=== PATIENT | female | born 1990 | race Caucasian/White ===

== ENCOUNTER → 2016-08-23 | Outpatient (CLI) | payer SELFPAY ==
[2016-08-23 10:56] LABS: BASOPHILS # (AUTO) 0.02 10*3/UL; BASOPHILS % (AUTO) 0.2 % (0-1); EOSINOPHILS % (AUTO) 0.7 % (0-8); HEMATOCRIT 36.3 % (37.0-47.0); HEMOGLOBIN 12.5 g/dL (12.0-16.0); IMM GRAN# (AUTO) 0.11 10*3/UL; LYMPHOCYTES # (AUTO) 1.93 10*3/uL; LYMPHOCYTES % (AUTO) 16.8 % (10-50); MEAN CORPUSCULAR HEMOGLOBIN 32.1 PG (27-31); MEAN CORPUSCULAR HGB CONC 34.4 g/dL (33-37); MEAN PLATELET VOLUME 10.6 FL (7.4-12.2); MONOCYTES # (AUTO) 0.72 10*3/UL (0.3-0.8); MONOCYTES % (AUTO) 6.3 % (5-15); NEUTROPHILS # (AUTO) 8.66 10*3/UL; RDW COEFFICIENT OF VARIATION 12.6 % (11.5-14.5); WHITE BLOOD COUNT 11.52 10^3/uL (4.8-10.8)
[2016-08-23 11:01] LABS: PLATELET MORPHOLOGY COMMENT NORMAL MORPHOLOGY (NORM)
[2016-08-23 11:02] LABS: PRENATAL QUESTION YES (Y)
[2016-08-23 11:54] LABS: HIV ANTIBODY NEGATIVE (N); HIV-1 P24 ANTIGEN NEGATIVE (N)
[2016-08-23 12:16] LABS: COCAINE SCREEN NEGATIVE (NEG); METHAMPHETAMINES SCREEN,URINE NEGATIVE (NEG); TRICYCLIC ANTIDEPRESSANT,URINE NEGATIVE (NEG); URINE SAMPLE TYPE VOIDED SPECIMEN; URINE SPECIFIC GRAVITY - MAN 1.015
[2016-08-23 12:17] LABS: CANNABINOID SCREEN,URINE NEGATIVE (NEG)
[2016-08-25 09:32] LABS: HEP B SURFACE AG Negative (Negative); SYPHILIS IGG WITH REFLEX Negative (Negative)
== END ==
LOC: LAB 10:27
PROVIDERS: ATTEND Student in an Organized Health Care Education/Training Program
DX: Z36 Encounter for antenatal screening of mother (principal); O09.33 Supervision of pregnancy with insufficient antenatal care, third trimester; O99.333 Smoking (tobacco) complicating pregnancy, third trimester; Z3A.33 33 weeks gestation of pregnancy
CPT/HCPCS: 36415; 80081; 80305; 86900; 86901; 87088

== ENCOUNTER → 2016-09-08 | Outpatient (CLI) | payer SELFPAY | LOC: MOB LAB 14:56 | PROVIDERS: ATTEND Student in an Organized Health Care Education/Training Program | DX: Z36 Encounter for antenatal screening of mother (principal); Z3A.35 35 weeks gestation of pregnancy | CPT/HCPCS: 87150 ==

== ENCOUNTER 2016-09-22 04:03 | Inpatient (IN) | payer SELFPAY ==
[~2016-09-22 04:03] MED LIST: NORMAL SALINE 10 ML SYRINGE FLUSH IVP PRN
[2016-09-22] MEDS ORDERED: Lidocaine 1% 10 MG/ML - 20 ML VIAL SUBCUT PRN (05:46)
[2016-09-22] MEDS ORDERED: Nalbuphine Inj 20 MG/ML Ampule IVP PRN ×2 (05:46→14:26)
[2016-09-22] MEDS ORDERED: Metoclopramide Inj 10 MG/2 ML VIAL IV PRN (05:46)
[2016-09-22] MEDS ORDERED: Carboprost Inj 250 MCG/ML AMP IM PRN ×2 (05:46→14:26)
[2016-09-22] MEDS ORDERED: MISOPROSTOL 200 MCG TABLET RECTAL PRN (05:46)
[2016-09-22] MEDS ORDERED: NALOXONE 0.4 MG/1 ML VIAL IVP PRN (05:46)
[2016-09-22] MEDS ORDERED: CefOXitin Inj 2 GM in Sodium Chloride 0.9% 100 ML IV PRN (05:46)
[2016-09-22] MEDS ORDERED: Naloxone Inj 0.01 MG in Normal Saline Flush 1 ML IVP PRN (05:46)
[2016-09-22] MEDS ORDERED: CITRIC ACID/SODIUM CITRATE 30 ML CUP PO PRN (05:46)
[2016-09-22] MEDS ORDERED: ONDANSETRON 4 MG/2 ML VIAL IVP PRN ×2 (05:46→14:26)
[2016-09-22] MEDS ORDERED: BUTORPHANOL TARTRATE 2 MG/1 ML VIAL IVP PRN (05:46)
[2016-09-22] MEDS ORDERED: METHYLERGONOVINE MALEATE 0.2 MG/1 ML VIAL IM PRN ×2 (05:46→14:26)
[2016-09-22] MEDS ORDERED: Phenylephrine Inj 50 MCG in Normal Saline Flush 0.5 ML IVP PRN (05:46)
[2016-09-22] MEDS ORDERED: TERBUTALINE SULFATE 1 MG/1 ML SDV SUBCUT PRN (05:46)
[2016-09-22] MEDS ORDERED: fentaNYL Inj 100 MCG/2 ML VIAL IV PRN (05:46)
[2016-09-22] MEDS ORDERED: OXYTOCIN 10 UNIT/1 ML IM PRN (05:46)
[2016-09-22] MEDS ORDERED: LIDOCAINE W/ SODIUM BICARB 0.5 ML SYR SUBD PRN (05:46)
[2016-09-22] MEDS ORDERED: NORMAL SALINE 10 ML SYRINGE FLUSH IVP PRN ×2 (05:46→14:26)
[2016-09-22] MEDS ORDERED: CALCIUM CARBONATE 500 MG (TUMS) CHEWABLE TABLET PO PRN ×2 (05:46→14:26)
[2016-09-22] MEDS ORDERED: diphenhydrAMINE 50 MG/1 ML VIAL IVP PRN ×2 (05:46→14:26)
[2016-09-22] MEDS ORDERED: ePHEDrine Inj 5 MG in Normal Saline Flush 1 ML IVP PRN (05:46)
[2016-09-22] MEDS ORDERED: Famotidine Inj 20 MG in Normal Saline Flush 10 ML IVP PRN ×4 (05:46)
[2016-09-22 05:47] LABS: CANNABINOID SCREEN,URINE NEGATIVE (NEG); COCAINE SCREEN NEGATIVE (NEG); METHAMPHETAMINES SCREEN,URINE NEGATIVE (NEG); TRICYCLIC ANTIDEPRESSANT,URINE NEGATIVE (NEG); URINE SPECIFIC GRAVITY - MAN 1.024
[2016-09-22] MEDS ORDERED: Oxytocin 20 Units + LR 1,000 ML IV SCH ×2 (06:00→14:26)
[2016-09-22] MEDS: Lactated Ringers-OB Dept 1,000 ML PRIMARY IV SCH ×4 (06:24→18:42)
[2016-09-22 06:30] LABS: HEMATOCRIT 38.4 % (37.0-47.0); HEMOGLOBIN 13.4 g/dL (12.0-16.0); MEAN CORPUSCULAR HEMOGLOBIN 31.4 PG (27-31); MEAN CORPUSCULAR HGB CONC 34.9 g/dL (33-37); MEAN PLATELET VOLUME 10.7 FL (7.4-12.2); RDW COEFFICIENT OF VARIATION 12.5 % (11.5-14.5); RED BLOOD COUNT 4.27 10^6/uL (4.20-5.40); WHITE BLOOD COUNT 16.57 10^3/uL (4.8-10.8)
[2016-09-22] MEDS ORDERED: Fent/Bupiv 2mcg/0.0625% Epid 250 ML ONE (07:17)
--- NOTE | 2016-09-22 09:23 | OB.PROGRES ---
Interval History: 26 yo at 37 6/7 weeks gestation (by 31 week u/s) who presented in labor last night. She started having contractions last night that increased in intensity and frequency. complicated by late presentation to care (31 weeks, 3 visits total). GBS positive, first dose of PCN given at 0628. Membranes were in tact at presentation. Ruptured spontaneously at about 0830, clear fluid. Epidural in place, patient is comfortable, starting to feel a bit of pressure PMH - none PSH - none FH - MGF cancer Meds - PNV SH - Lives in [place] with Sharon. He has 2 kids that live primarily in [place], but visit every 3 weeks. She works at the [employer]. <1/2 ppd smoker currently. 2.5 year smoking history. Denies drug or etoh use. Allergies - NKDA, peanuts Objective - Cervical Exam Cervical Exam: 9.5/100/0 per RN, davila catheter placed Alvo: q3 min Heart Rate: baseline 140, moderate variability, accels, 2 late decels, 1 variable decel Heart Rate Interpretation Category: Category II - Labs CBC and BMP: 09/22/16 06:00 Labs - Last 24 Hours: Laboratory Results 09/22/16 09/22/16 Range/Units 05:29 06:00 WBC 16.57 H (4.8-10.8) 10^3/uL RBC 4.27 (4.20-5.40) 10^6/uL Hgb 13.4 (12.0-16.0) g/dL Hct 38.4 (37.0-47.0) % MCV 89.9 (81-99) FL MCH 31.4 H (27-31) PG MCHC 34.9 (33-37) g/dL RDW Std Deviation 40.7 (39-50) fL RDW Coeff of Vinayak 12.5 (11.5-14.5) % Plt Count 290 (140-350) 10*3/uL MPV 10.7 (7.4-12.2) FL Ur Collection Type v U Specif Grav (Refrac) 1.024 Urine Opiates Screen Negative (NEG) Ur Buprenorphine Negative (NEG) Ur Oxycodone Screen Negative (NEG) Urine Methadone Screen Negative (NEG) Ur Propoxyphene Screen Negative (NEG) Ur Barbiturates Screen Negative (NEG) U Tricyclic Antidepress Negative (NEG) Phencyclidine Screen Negative (NEG) Amphetamines Screen Negative (NEG) U Methamphetamines Scrn Negative (NEG) U Benzodiazepines Scrn Negative (NEG) Urine Cocaine Screen Negative (NEG) U Cannabinoids Screen Negative (NEG) - Vital Signs Last Taken Vital Signs: Vital Signs - Last Taken Temperature 98.0 F 09/22/16 07:45 Pulse Rate 62 09/22/16 07:45 Respiratory Rate 18 09/22/16 07:45 Blood Pressure 110/53 09/22/16 07:45 Pulse Ox 99 09/22/16 07:21 Assessment and Plan - Patient Problems (1) 37 weeks gestation of Current Visit: Yes Status: Acute (2) Positive GBS test Current Visit: Yes Status: Acute Support Text: 26 yo at 37 6/7 weeks gestation (by 31 week u/s) in active labor -GBS positive, first dose of PCN given at 0630 -Nearly complete, will try to labor down and get second dose of PCN on board -Epidural in place -Did receive TDaP in labor
--- NOTE | 2016-09-22 12:19 | OB.DEL.SUM ---
Delivery Note Delivery Summary: 26 yo G1 now P0 at 37 6/7 weeks gestation by 31 week u/s presented in active labor. She delivered a live female infant in MICHEL over intact perineum with epidural anesthesia via . No meconium or nuchal cord. Spontaneous deliver of placenta with 3 vessel cord intact. She had 2nd degree perineal laceration and R and L labial lacerations. 3-0 vicryl sutures were used to repair all in standard fashion. EBL 300 cc. - Patient Problems (1) 37 weeks gestation of Current Visit: Yes Status: Acute (2) Positive GBS test Current Visit: Yes Status: Acute
--- NOTE | 2016-09-22 13:46 | CRNA.PROCE ---
Central Neuraxis Block Placemt - - Safety Measures: Time Out Taken, Site Verified - - Type of Block: Epidural Reason for Block: Analgesia Moniters Used During Block: SPO2, NIBP Positioning: Sitting Skin Prep Used: ChloroPrep Draped: Yes Skin Infiltration - Enter Amount Used in Comment Field: 1% Xylocaine (mL): Yes ( skinwheal) Spinal Needle Used: 18 Hustead 80 mm Local Anesthetic - Enter Amount Used in Comment Field: 1.5 % Xylocaine with Epinephrine 1:200,000 (mL): Yes (5ml) Number of Centimeters Catheter Threaded: 4 Bioclusive Dressing Applied: Yes - - Additional Details: this note is a late entry, Labor epidural was completed at 0720 today.
[2016-09-22] MEDS ORDERED: fentaNYL 2 MCG/BUPIVACAINE 0.0625%/NS 0.9% 250 ML BAG EPIDURAL SCH (14:00)
[2016-09-22] MEDS ORDERED: GLYCERIN/WITCH HAZEL 1 BOX TOPICAL PRN (14:26)
[2016-09-22] MEDS ORDERED: MISOPROSTOL 200 MCG TABLET RECTAL ONE (14:26)
[2016-09-22] MEDS ORDERED: Methylergonovine Tab 0.2 MG TAB PO PRN (14:26)
[2016-09-22] MEDS ORDERED: ACETAMINOPHEN 325 MG TABLET PO PRN (14:26)
[2016-09-22] MEDS ORDERED: OXYTOCIN 10 UNIT/1 ML IM ONE (14:26)
[2016-09-22] MEDS ORDERED: diphenhydrAMINE 25 MG CAPSULE PO PRN (14:26)
[2016-09-22] MEDS ORDERED: Ondansetron ODT Tab 4 MG TAB PO PRN (14:26)
[2016-09-22] MEDS ORDERED: LANOLIN HPA 40 GM TUBE TOPICAL PRN (14:26)
[2016-09-22] MEDS ORDERED: IBUPROFEN 800 MG TABLET PO PRN (14:26)
[2016-09-22] MEDS ORDERED: BENZOCAINE/MENTHOL SPRAY 56 GM BOTTLE TOPICAL PRN (14:26)
[2016-09-22] MEDS: DOCUSATE 100 MG CAPSULE PO SCH (21:32)
[2016-09-23 06:34] LABS: HEMATOCRIT 37.5 % (37.0-47.0); HEMOGLOBIN 12.6 g/dL (12.0-16.0); MEAN CORPUSCULAR HGB CONC 33.6 g/dL (33-37); MEAN PLATELET VOLUME 10.7 FL (7.4-12.2); RDW COEFFICIENT OF VARIATION 12.7 % (11.5-14.5); RED BLOOD COUNT 4.06 10^6/uL (4.20-5.40); WHITE BLOOD COUNT 14.94 10^3/uL (4.8-10.8)
[2016-09-23] MEDS: DOCUSATE 100 MG CAPSULE PO SCH (08:30)
[2016-09-23 08:37] VITALS: RESP 18; TEMP 97.5
--- NOTE | 2016-09-23 08:41 | DCSUMMARY ---
Hospitalization Summary Admit Date: 09/22/16 Discharge Date: 09/23/16 Primary Diagnosis:: Active labor, 37 6/7 weeks gestation Secondary Diagnosis:: Delivery Type: Vaginal Hospital Course: 26 yo G1 now P1 presented at 37 6/7 weeks gestation by 31 week ultrasound in active labor. complicated by by late presentation to care and limited care. Patient smoked through as well. GBS positive. She was given her first dose of PCN after admission, second was hung 4 hours later shortly before delivery. She delivered a 5 lb 13.8 oz female via . She did have bilateral labia tears and a 2nd degree perineal tear that were repaired. Mom recovered very well post and is ready for d/c to home. / Postop Complications: None apparent Complications: none apparent Did Neisha at 36 weeks gestation, blood sugars and temperature monitored closely Exam - Vitals Vital Signs: Vital Signs Temperature 97.8 F Temperature Source Oral Pulse Rate [Pulse Oximeter] 62 Respiratory Rate [ 18 Contractrions] Respiratory Rate 16 Blood Pressure [Right Arm] 101/58 Pulse Ox 99 Oxygen Delivery Method Room Air Height 5 ft 9 in Weight 137 lb - General General Appearance: POSITIVE: No Acute Distress, Cooperative - Head Head Exam: POSITIVE: Normal Inspection - Eye Eye Exam: POSITIVE: Normal Appearance - ENT ENT Exam: POSITIVE: Mucous Membranes Moist - Respiratory Respiratory Exam: POSITIVE: Clear to Auscultation - Bilaterally, Breathing Non Labored - Cardiovascular Cardiovascular Exam: POSITIVE: RRR, No Murmur - GI/Abdominal GI/Abdominal Exam: POSITIVE: Normal Bowel Sounds - Neurological Neurological Exam: POSITIVE: Alert, Oriented x 3 - Psychiatric Psychiatric Exam: POSITIVE: Normal Affect, Normal Mood - Integumentary Integumentary Exam: POSITIVE: Normal Color Patient Problems - Patient Problem List (1) 37 weeks gestation of Current Visit: Yes Status: Acute (2) Positive GBS test Current Visit: Yes Status: Acute Support Text: 26 yo G1 now P1, PPD 1 -Doing well , has not required any pain medications -Continue PNV while breast feeding. Patient planning to pump until milk comes in , giving formula currently 2/2 borderline hypoglycemia in -D/c to home today -F/u with me 6 weeks pp -Would like tubal for contraception, medicaid not yet active. Will readdress when insurance is active - considering IUD too.
[2016-09-23] MEDS ORDERED: Prenatal Multivitamin Tab 1 TAB TAB PO SCH (09:00)
== END 2016-09-23 08:47 | disposition home or self-care (01) | DRG 774 ==
LOC: OBOP 04:03 → OBIP 05:46
PROVIDERS: ADMIT Obstetrics & Gynecology; ATTEND Student in an Organized Health Care Education/Training Program
PROC: 10E0XZZ Delivery of Products of Conception, External Approach (ICD-10-PCS; principal; 2016-09-22)
PROC: 0UQMXZZ Repair Vulva, External Approach (ICD-10-PCS; 2016-09-22)
DX: O98.82 Other maternal infectious and parasitic diseases complicating childbirth (principal); B95.1 Streptococcus, group B, as the cause of diseases classified elsewhere; O70.0 First degree perineal laceration during delivery; O99.334 Smoking (tobacco) complicating childbirth; Z3A.37 37 weeks gestation of pregnancy; Z37.0 Single live birth
CPT/HCPCS: 36415; 80305; 85027; J2001; J2210; J2540; J3010; J3490; J7050; J7120

== ENCOUNTER → 2016-11-03 | Outpatient (CLI) | payer OTHER | LOC: MOB LAB 10:46 | PROVIDERS: ATTEND Student in an Organized Health Care Education/Training Program | DX: Z30.430 Encounter for insertion of intrauterine contraceptive device (principal) | CPT/HCPCS: 87491; 87591 ==